=== PATIENT | female | born 1935 | race Caucasian/White ===

== ENCOUNTER 2017-09-16 09:22 | Outpatient (CLI) | payer OTHER ==
[~2017-09-16 09:22] MED LIST: ADVIL200 M1 PO; ASPIR 8181 MG PO; TENORMIN50 M1 PO; XARELTO10 MG PO
== END 2017-09-16 09:34 | disposition home or self-care (01) ==
LOC: LAB 09:22
DX: I10 Essential (primary) hypertension (principal); M54.5 Low back pain; E55.9 Vitamin D deficiency, unspecified; E66.8 Other obesity; I25.10 Atherosclerotic heart disease of native coronary artery without angina pectoris; I48.2 Chronic atrial fibrillation; I40.1 Isolated myocarditis; I49.8 Other specified cardiac arrhythmias

== ENCOUNTER 2017-12-02 09:40 | Outpatient (CLI) | payer OTHER | END 2017-12-02 10:00 | disposition home or self-care (01) | LOC: LAB 09:40 | DX: Z12.11 Encounter for screening for malignant neoplasm of colon (principal); D64.89 Other specified anemias; E03.8 Other specified hypothyroidism; N95.1 Menopausal and female climacteric states; I10 Essential (primary) hypertension; C51.9 Malignant neoplasm of vulva, unspecified; N39.0 Urinary tract infection, site not specified; E55.9 Vitamin D deficiency, unspecified; A64 Unspecified sexually transmitted disease; R19.00 Intra-abdominal and pelvic swelling, mass and lump, unspecified site; R82.79 Other abnormal findings on microbiological examination of urine ==

== ENCOUNTER 2017-12-08 07:51 | Outpatient (CLI) | payer OTHER | END 2017-12-08 08:01 | disposition home or self-care (01) | LOC: MAMO-SONO 07:51 | DX: Z12.31 Encounter for screening mammogram for malignant neoplasm of breast (principal); Z87.898 Personal history of other specified conditions; N60.11 Diffuse cystic mastopathy of right breast; N60.12 Diffuse cystic mastopathy of left breast ==

== ENCOUNTER 2018-04-01 09:24 | Outpatient (CLI) | payer OTHER | END 2018-04-01 09:30 | disposition home or self-care (01) | LOC: RAD 09:24 | DX: I48.91 Unspecified atrial fibrillation (principal) ==

== ENCOUNTER 2018-07-11 19:04 | Emergency (ER) | payer OTHER ==
[~2018-07-11] VITALS: Ht 152.4 cm; Wt 69.9 kg
[2018-07-11] MEDS ORDERED: AMIODARONE HCL100 MG (19:13)
[2018-07-11] MEDS ORDERED: LASIX20 MG (19:14)
== END 2018-07-11 23:22 | disposition home or self-care (01) ==
LOC: ER 19:04 → CPU-OBS 20:15 → ER 07-12 00:05
DX: R07.89 Other chest pain (principal)

== ENCOUNTER 2018-12-01 11:30 | Outpatient (CLI) | payer OTHER ==
[~2018-12-01 11:30] MED LIST changes: +AMIODARONE HCL100 MG; +LASIX20 MG
== END 2018-12-01 11:32 | disposition home or self-care (01) ==
LOC: RAD 11:30
DX: I10 Essential (primary) hypertension (principal)

== ENCOUNTER → 2019-03-02 | Outpatient (CLI) | payer OTHER | END | disposition home or self-care (01) | LOC: TOM 13:02 | DX: R10.10 Upper abdominal pain, unspecified (principal) ==

== ENCOUNTER 2019-04-11 09:51 | Outpatient (CLI) | payer OTHER | END 2019-04-11 09:53 | disposition home or self-care (01) | LOC: RAD 09:51 | DX: I10 Essential (primary) hypertension (principal) ==

== ENCOUNTER 2021-08-26 10:39 | Emergency (ER) | payer OTHER ==
[~2021-08-26] VITALS: Ht 154.9 cm; Wt 57.2 kg
[2021-08-26] MEDS ORDERED: BRILINTA90 MG PO (10:59)
[2021-08-26] MEDS ORDERED: TOPROL XL50 M1 PO (11:00)
[2021-08-26] MEDS ORDERED: BUSPIRONE HCL7.5 MG (11:00)
[2021-08-26] MEDS ORDERED: TORSEMIDE20 MG PO (11:00)
== END 2021-08-26 15:33 | disposition home or self-care (01) ==
LOC: ER 10:39
DX: M54.2 Cervicalgia (principal); M25.511 Pain in right shoulder; M75.31 Calcific tendinitis of right shoulder